=== PATIENT | female | born 1985 | race Hispanic/Latino ===

== ENCOUNTER 2017-09-26 18:53 | Emergency (ER) | payer SELFPAY ==
[2017-09-26] MEDS ORDERED: ONDANSETRON 4 MG/2 ML VIAL ONE (19:26)
[2017-09-26] MEDS ORDERED: NA CHLORIDE 0.9% 1,000 ML ONE (19:26)
[2017-09-26 20:00] LABS: Absolute Lymphocytes (CBC) 1.8 K/uL (0.7-4.9); Absolute Monocytes 0.8 K/uL (0.1-1.3); Absolute Neutrophil 6.7 K/uL (1.8-8.0); Basophils % 0.7 % (0-1.3); Eosinophils % 0.7 % (0-4.4); Hematocrit 41.9 % (36.0-45.0); MCH 30.3 pg (27.0-35.0); MCV 90.2 fL (80-100); MPV 8.2 fL (7.6-11.3); Monocytes % 8.2 % (3.3-12.3); RBC Red Blood Cell Count 4.65 M/uL (3.86-4.86)
[2017-09-26 20:10] LABS: Barbiturates NEGATIVE; Benzodiazepines NEGATIVE; Cocaine NEGATIVE; METHAMPHETAM NEGATIVE; Opiates NEGATIVE; Phencyclidine NEGATIVE; THC Cannibis NEGATIVE
[2017-09-26 20:13] LABS: Bicarbonate 26 mEq/L (21-31); Glucose Level 95 mg/dL (65-120); Potassium 3.4 mEq/L (3.6-5.0); Sodium Level 136 mEq/L (135-145)
[2017-09-26 20:19] LABS: ALT/SGPT 46 IU/L (10-60); AST/SGOT 43 IU/L (10-42); Albumin 4.7 g/dL (3.2-5.5); Alkaline Phosphatase 65 IU/L (42-121); BUN Blood Urea Nitrogen 9 mg/dL (6-20); Bilirubin Direct 0.1 mg/dL (0-0.2); Bilirubin Total 0.9 mg/dL (0.3-1.2); Magnesium 1.7 mg/dL (1.8-2.5); Protein, Total 8.2 g/dL (6.0-8.3)
[2017-09-26 20:28] LABS: Urine Blood TRACE (NEG); Urine Glucose NEGATIVE (NEG); Urine Protein TRACE (NEG); Urine pH 5.5 (5.0-7.0)
[2017-09-26 20:29] LABS: Urine Bacteria <20 /HPF (<20); Urine Culture Reflex Order REFLEXED; Urine RBC <5 /HPF (NONE SEEN)
[2017-09-26] MEDS ORDERED: MAGNESIUM OXIDE 400 MG TAB ONE (20:41)
[2017-09-26] MEDS ORDERED: POTASSIUM 25 MEQ EFFERV TAB ONE (20:42)
--- NOTE | 2017-09-26 21:09 | EDPHYS ---
Physician Documentation [facility] Name: Luna Pettit Age: 32 yrs Sex: Female : 1985 Arrival Date: 09/26/2017 Time: 18:57 Bed 20 Private MD: None, None ED Physician Luis Antonio Aburto HPI: 09/26 19:25 This 32 yrs old Female presents to ER via Ambulatory with complaints of cp Vomiting, Dizziness, Numbness Of Hand. 19:25 The patient presents to the emergency department with vomiting, 2 times today, cp diarrhea, 2 times today. 19:25 Onset: The symptoms/episode began/occurred today. Possible causes: unknown. Associated cp signs and symptoms: Pertinent positives: tingling of fingertips bilaterally, Pertinent negatives: abdominal pain, constipation, dysuria, fever, GI bleeding, chest pain. Severity of symptoms: in the emergency department the symptoms are unchanged despite home interventions. 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 - Social history:: Smoking status: Patient uses tobacco products, denies chronic smoking, but will smoke occasionally. ROS: 19:30 Constitutional: Negative for body aches, chills, fever, poor PO intake. cp 19:30 Eyes: Negative for injury, pain, redness, and discharge. cp 19:30 ENT: Negative for drainage from ear(s), ear pain, sore throat, difficulty swallowing, difficulty handling secretions. 19:30 Cardiovascular: Negative for chest pain, edema, palpitations. 19:30 Respiratory: Negative for cough, shortness of breath, wheezing. 19:30 Abdomen/GI: Positive for nausea and vomiting, diarrhea, Negative for abdominal pain, constipation, black/tarry stool, rectal bleeding. 19:30 : Negative for urinary symptoms, vaginal bleeding. 19:30 MS/extremity: Positive for paresthesias, of the right hand and left hand. 19:30 Skin: Negative for cellulitis, diaphoresis, rash. 19:30 Neuro: Positive for generalized weakness, Negative for altered mental status, dizziness, headache, syncope, near syncope. 19:30 All other systems are negative. Exam: 19:37 Constitutional: The patient appears in no acute distress, alert, awake, cp non-diaphoretic, non-toxic, well developed, well nourished, anxious. 19:37 Head/Face: Normocephalic, atraumatic. Eyes: Pupils equal round and reactive to light, cp extra-ocular motions intact. Lids and lashes normal. Conjunctiva and sclera are non-icteric and not injected. Cornea within normal limits. Periorbital areas with no swelling, redness, or edema. ENT: Nares patent. No nasal discharge, no septal abnormalities noted. Tympanic membranes are normal and external auditory canals are clear. Oropharynx with no redness, swelling, or masses, exudates, or evidence of obstruction, uvula midline. Mucous membranes moist. Neck: Trachea midline, no thyromegaly or masses palpated, and no cervical lymphadenopathy. Supple, full range of motion without nuchal rigidity, or vertebral point tenderness. No Meningismus. Chest/axilla: Normal chest wall appearance and motion. Nontender with no deformity. No lesions are appreciated. 19:37 Cardiovascular: Rate: normal, Rhythm: regular, Pulses: Pulses are 2+ in right radial artery and left radial artery. Heart sounds: murmur, not appreciated, rub, not appreciated, gallop, not appreciated, Edema: is not appreciated, JVD: is not appreciated. 19:37 Respiratory: the patient does not display signs of respiratory distress, Respirations: normal, no use of accessory muscles, no retractions, no splinting, no tachypnea, labored breathing, is not present, Breath sounds: are clear throughout, no decreased breath sounds, no stridor, no wheezing. 19:37 Abdomen/GI: Inspection: abdomen appears normal, Bowel sounds: active, all quadrants, Palpation: abdomen is soft and non-tender, in all quadrants, rebound tenderness, is not appreciated, voluntary guarding, is not appreciated, involuntary guarding, is not appreciated. 19:37 Back: pain, is absent, ROM is normal. 19:37 Skin: cellulitis, is not appreciated, no rash present. 19:37 Neuro: Orientation: to person, place \T\ time. Mentation: is normal, Cerebellar function: is grossly normal, Motor: moves all fours, strength is normal, Sensation: tingling, that is mild, of the bilateral fingertips. 20:07 ECG was reviewed by the Attending Physician. cp Vital Signs: 19:10 BP 101 / 63; Pulse 70; Resp 32; Temp 98.4; Pulse Ox 100% on R/A; Weight 59.87 kg; aj Height 5 ft. 6 in. (167.64 cm); Pain 0/10; 19:45 BP 99 / 49; Pulse 57; Resp 16; Pulse Ox 100% on R/A; Pain 0/10; lk1 20:00 BP 105 / 53; Pulse 56; Resp 15; Pulse Ox 100% on R/A; lk1 20:30 BP 108 / 53; Pulse 55; Resp 15; Pulse Ox 100% on R/A; lk1 21:30 BP 107 / 55; Pulse 61; Resp 15; Pulse Ox 100% on R/A; Pain 0/10; lk1 19:10 Body Mass Index 21.31 (59.87 kg, 167.64 cm) aj MDM: 19:12 Patient medically screened. cp 20:00 Differential diagnosis: gastritis, viral gastroenteritis, gastroenteritis, electrolyte cp abnormality, dehydration. 21:05 Data reviewed: vital signs, nurses notes, lab test result(s), EKG. cp 21:05 Test interpretation: by ED physician or midlevel provider: ECG. cp 21:07 Counseling: I had a detailed discussion with the patient and/or guardian regarding: the cp historical points, exam findings, and any diagnostic results supporting the discharge/admit diagnosis, lab results, to return to the emergency department if symptoms worsen or persist or if there are any questions or concerns that arise at home. 21:07 Response to treatment: the patient's symptoms have markedly improved after treatment, cp and as a result, I will discharge patient. 09/26 19:24 Order name: Basic Metabolic Panel; Complete Time: 20:25 cp 09/26 20:25 Interpretation: Normal except: K 3.4. cp 09/26 19:24 Order name: CBC with Diff; Complete Time: 20:25 cp 09/26 19:24 Order name: LFT's; Complete Time: 20:25 cp 09/26 20:33 Interpretation: Normal except: SGOT 43. cp 09/26 19:24 Order name: Magnesium; Complete Time: 20:25 cp 09/26 20:50 Interpretation: Abnormal: MG 1.7. cp 09/26 19:24 Order name: Urine Microscopic Only; Complete Time: 20:33 cp 09/26 20:33 Interpretation: Normal except: UWBC 5-10; SQEPI 20-50. cp 09/26 19:24 Order name: UDS; Complete Time: 20:25 cp 09/26 19:24 Order name: EKG; Complete Time: 19:24 cp 09/26 19:55 Order name: Urine Dipstick--Ancillary (enter results); Complete Time: 20:33 cb2 09/26 20:33 Interpretation: Normal except: UKET 2+; UBLD TRACE. cp 09/26 19:55 Order name: Urine --Ancillary (enter results); Complete Time: 20:33 cb2 09/26 20:30 Order name: Urine Culture EDMS 09/26 19:24 Order name: Orthostatics cp 09/26 19:24 Order name: EKG - Nurse/Tech; Complete Time: 20:05 cp 09/26 19:24 Order name: Urine Test (obtain specimen); Complete Time: 19:52 cp 09/26 19:24 Order name: Cardiac monitoring; Complete Time: 19:49 cp 09/26 19:24 Order name: IV Saline Lock; Complete Time: 19:52 cp 09/26 19:24 Order name: Labs collected and sent; Complete Time: 19:52 cp 09/26 19:24 Order name: O2 Per Protocol; Complete Time: 19:49 cp 09/26 19:24 Order name: O2 Sat Monitoring; Complete Time: 19:49 cp 09/26 19:24 Order name: Urine Dipstick-Ancillary (obtain specimen); Complete Time: 19:52 cp 09/26 20:51 Order name: PO challenge; Complete Time: 21:18 cp EC:07 Rate is 59 beats/min. Rhythm is regular. AR interval is normal. QRS interval is normal. cp QT interval is normal. No ST changes noted. Interpreted by me. Reviewed by me. Administered Medications: 19:45 Drug: Zofran 4 mg Route: IVP; Site: right antecubital; lk1 20:40 Follow up: Response: No adverse reaction; Marked relief of symptoms [facility] 19:45 Drug: NS 0.9% 1000 ml Route: IV; Rate: 1 bolus; Site: right antecubital; lk1 20:40 Follow up: Response: No adverse reaction; IV Status: Completed infusion lk1 20:40 Drug: Potassium Effervescent Tablet 25 mEq Route: PO; lk1 21:00 Follow up: Response: No adverse reaction lk1 20:40 Drug: Magnesium Oxide 800 mg Route: PO; lk1 21:00 Follow up: Response: No adverse reaction [facility] Disposition: 09/26/17 21:09 Discharged to Home. Impression: Vomiting, unspecified, Diarrhea, unspecified, Paresthesia of skin - Bilateral Fingertips. - Condition is Stable. - Discharge Instructions: Food Choices to Help Relieve Diarrhea, Adult, Diarrhea, Nausea and Vomiting, Paresthesia. - Prescriptions for Zofran 4 mg Oral Tablet - take 1 tablet by ORAL route every 12 hours As needed; 20 tablet. - Medication Reconciliation Form, Thank You Letter, Antibiotic Education, Prescription Opioid Use form. - Follow up: Private Physician; When: 1 - 2 days; Reason: Recheck today's complaints. - Problem is new. - Symptoms have improved. Addendum: 09/30/2017 10:12 Co-signature as Attending Physician, Luis Antonio Aburto MD. g s Signatures: Dispatcher [employer] Alissa Mcconnell RN RN aj Page, Corey, PA PA cp Kluge, Leah, RN RN lk1 Luis Antonio Aburto MD MD
--- NOTE | 2017-09-26 21:09 | ER ---
Nurse's Notes [facility] Name: Luna Pettit Age: 32 yrs Sex: Female : 1985 Arrival Date: 09/26/2017 Time: 18:57 Bed 20 Private MD: None, None Diagnosis: Vomiting, unspecified;Diarrhea, unspecified;Paresthesia of skin-Bilateral Fingertips Presentation: 09/26 19:08 Presenting complaint: Patient states: Reports tingling in bilateral fingers and anxiety aj since this AM. Patient is hyperventilating in triage. NRB mask placed on patient in triage. Transition of care: patient was not received from another setting of care. Onset of symptoms was September 26, 2017. Initial Sepsis Screen: Does the patient meet any 2 criteria? No. Patient's initial sepsis screen is negative. Does the patient have a suspected source of infection? No. Patient's initial sepsis screen is negative. Care prior to arrival: None. 19:08 Method Of Arrival: Ambulatory aj 19:08 Acuity: AGUSTÍN 4 aj Triage Assessment: 19:10 General: Appears in no apparent distress. comfortable, Behavior is cooperative, aj anxious. Pain: Denies pain. Neuro: Level of Consciousness is awake, alert, obeys commands, Oriented to person, place, time, situation, Appropriate for age. Respiratory: Airway is patent Respiratory effort is even, unlabored, Respiratory pattern is symmetrical, hyperventilation. GI: Reports nausea. Derm: Skin is intact, is healthy with good turgor, Skin is pink, warm \T\ dry. normal. Musculoskeletal: Reports numbness in right arm, left arm, right leg and left leg. 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 - Social history:: Smoking status: Patient uses tobacco products, denies chronic smoking, but will smoke occasionally. Screenin:49 Abuse screen: Denies threats or abuse. Denies injuries from another. Nutritional lk1 screening: No deficits noted. Tuberculosis screening: No symptoms or risk factors identified. Fall Risk None identified. Assessment: 19:30 General: Appears in no apparent distress. Behavior is anxious. Pain: Denies pain. lk1 Neuro: Level of Consciousness is awake, alert, obeys commands, Oriented to person, place, time, situation. Cardiovascular: Heart tones S1 S2 present Capillary refill is brisk Patient's skin is warm and dry. Respiratory: Airway is patent Respiratory effort is even, unlabored, Respiratory pattern is regular, symmetrical, Breath sounds are clear bilaterally. GI: Abdomen is non-distended, Bowel sounds present X 4 quads. Reports diarrhea, nausea, vomiting. : No signs and/or symptoms were reported regarding the genitourinary system. EENT: No signs and/or symptoms were reported regarding the EENT system. Derm: No signs and/or symptoms reported regarding the dermatologic system. Musculoskeletal: No signs and/or symptoms reported regarding the musculoskeletal system. Vital Signs: 19:10 BP 101 / 63; Pulse 70; Resp 32; Temp 98.4; Pulse Ox 100% on R/A; Weight 59.87 kg; aj Height 5 ft. 6 in. (167.64 cm); Pain 0/10; 19:45 BP 99 / 49; Pulse 57; Resp 16; Pulse Ox 100% on R/A; Pain 0/10; lk1 20:00 BP 105 / 53; Pulse 56; Resp 15; Pulse Ox 100% on R/A; lk1 20:30 BP 108 / 53; Pulse 55; Resp 15; Pulse Ox 100% on R/A; lk1 21:30 BP 107 / 55; Pulse 61; Resp 15; Pulse Ox 100% on R/A; Pain 0/10; lk1 19:10 Body Mass Index 21.31 (59.87 kg, 167.64 cm) ED Course: 18:57 Patient arrived in ED. mr 18:57 None, None is Private Physician. mr 19:09 Triage completed. aj 19:10 Arm band placed on left wrist. Patient placed in an exam room, on a stretcher. aj 19:12 Jeff Hurst PA is PHCP. cp 19:12 Luis Antonio Aubrto MD is Attending Physician. cp 19:25 Jackie Kruger RN is Primary Nurse. lk1 19:52 Initial lab(s) drawn, by me, sent to lab. Urine collected: clean catch specimen, cb2 cloudy, juan colored. Inserted saline lock: 20 gauge in right antecubital area, using aseptic technique. Blood collected. 20:04 EKG done, by ED staff, reviewed by Jeff MORRIS. cb2 21:49 Patient has correct armband on for positive identification. Bed in low position. Call lk1 light in reach. Side rails up X2. Adult w/ patient. 21:49 No provider procedures requiring assistance completed. IV discontinued, intact, lk1 bleeding controlled, No redness/swelling at site. Pressure dressing applied. Administered Medications: 19:45 Drug: Zofran 4 mg Route: IVP; Site: right antecubital; lk1 20:40 Follow up: Response: No adverse reaction; Marked relief of symptoms lk1 19:45 Drug: NS 0.9% 1000 ml Route: IV; Rate: 1 bolus; Site: right antecubital; lk1 20:40 Follow up: Response: No adverse reaction; IV Status: Completed infusion lk1 20:40 Drug: Potassium Effervescent Tablet 25 mEq Route: PO; lk1 21:00 Follow up: Response: No adverse reaction lk1 20:40 Drug: Magnesium Oxide 800 mg Route: PO; lk1 21:00 Follow up: Response: No adverse reaction lk1 Outcome: 21:09 Discharge ordered by . cp 21:49 Discharged to home ambulatory, with family. lk1 21:49 Condition: good 21:49 Discharge instructions given to patient, family, Instructed on discharge instructions, follow up and referral plans. medication usage, safety practices, Demonstrated understanding of instructions, follow-up care, medications, Prescriptions given X 1. 21:50 Patient left the ED. lk1 Signatures: Alissa Izaguirre, RN Karrie Mata Corey, PA PA cp Kluge, Leah, RN RN lkTex [place] cb2
--- NOTE | 2017-09-27 07:02 | EKG ---
Test Date: 2017-09-26 Test Time: 20:01:18 Health And Safety Specialist: KASEY MEASUREMENT RESULTS: Intervals: Rate: 59 MD: 104 QRSD: 68 QT: 398 QTc: 394 Weir: P: 20 MD: 104 QRS: 82 T: 46 INTERPRETIVE STATEMENTS: Sinus bradycardia with short MD Otherwise normal ECG No previous ECG available for comparison Electronically Signed On 09-27-17 07:01:40 CDT by Michael Dave
== END 2017-09-26 21:50 | disposition home or self-care (01) ==
LOC: ER 18:53
DX: R19.7 Diarrhea, unspecified (principal); R20.2 Paresthesia of skin; F17.210 Nicotine dependence, cigarettes, uncomplicated
CPT/HCPCS: 36415; 80048; 80076; 80307; 81003; 81015; 81025; 83735; 85025; 87086; 87088; 93005; 96361; 96374; 99284; J2405; J7030